=== PATIENT | female | born 1930 | race Caucasian/White ===

== ENCOUNTER 2016-06-01 11:31 | Day surgery (SDC) | payer MEDICARE, BC ==
[~2016-06-01] VITALS: Ht 157.5 cm; Wt 64.2 kg
[~2016-06-01 11:31] MED LIST: AMITIZA 8MCG8 MCG PO; CATAPRES0.2 MG PO; COUMADIN 1010 MG/TAB PO; COUMADIN 77.5 MG/TAB PO; DITROPAN 5MG TAB5 MG PO; LASIX 40MG TABL40 MG PO; MIRALAX PA17 GM/Dose PO; MURO 128 5% OPH15 ML OP; NORVASC 10MG10 MG PO; NORVASC 5MG5 MG/TAB PO; PRILOSEC 20MG20 MG PO; PRINIVIL40 MG PO; PROAIR HFA0.09 MG/AC IH; PROTONIX 40MG T40 MG PO; REQUIP 1MG T1 MG/TAB PO; RESTASIS 60VL OP; RT ADVAIR 228 DISKUS IH; RT ALBUTER2.5 MG/0.5 IH; RT SPIRIVA18 MCG IH; SINGULAIR 110 MG/TAB PO; ZESTRIL40 MG PO
[2016-06-01 12:15] VITALS: BP 181/69; PULSE 64; TEMP 98.1
[2016-06-01] MEDS ORDERED: ALBUTEROL0.83 MG/ML IH (12:18)
[2016-06-01] MEDS ORDERED: NORVASC 5MG5 MG/TAB PO (12:19)
[2016-06-01] MEDS ORDERED: AMITIZA 8MCG8 MCG PO (12:19)
[2016-06-01] MEDS ORDERED: CLARITIN 1010 MG/TAB PO (12:20)
[2016-06-01] MEDS ORDERED: ELIQUIS 2.5 PO (12:20)
[2016-06-01] MEDS ORDERED: VENTOLIN0.09 MG IH (12:21)
[2016-06-01] MEDS ORDERED: RT SPIRIVA18 MCG IH (12:21)
[2016-06-01] MEDS ORDERED: PROTONIX 40MG T40 MG PO (12:21)
[2016-06-01] MEDS ORDERED: REQUIP 1MG T1 MG/TAB PO (12:22)
[2016-06-01] MEDS ORDERED: LOPRESSOR 225 MG/TAB PO (12:22)
[2016-06-01] MEDS ORDERED: ZESTRIL40 MG PO (12:23)
[2016-06-01] MEDS ORDERED: SINGULAIR 110 MG/TAB PO (12:23)
[2016-06-01] MEDS ORDERED: MIRALAX PA17 GM/Dose PO (12:24)
[2016-06-01] MEDS ORDERED: DITROPAN 5MG TAB5 MG PO (12:24)
[2016-06-01] MEDS ORDERED: MURO-128 5% OP3.5 GM OP (12:25)
[2016-06-01] MEDS ORDERED: STOOL SOFTENER100 M2 PO (12:25)
[2016-06-01 12:51] VITALS: BP 165/78; PULSE 68; TEMP 97.5
[2016-06-01 13:05] VITALS: BP 169/67; PULSE 76
[2016-06-01 13:20] VITALS: BP 148/83; PULSE 76
== END 2016-06-01 13:45 | disposition home or self-care (01) ==
LOC: SDCO 11:31
DX: R05 Cough (principal); R06.00 Dyspnea, unspecified; R09.89 Other specified symptoms and signs involving the circulatory and respiratory systems; J44.9 Chronic obstructive pulmonary disease, unspecified; K21.9 Gastro-esophageal reflux disease without esophagitis; I10 Essential (primary) hypertension; Z79.899 Other long term (current) drug therapy; Z79.01 Long term (current) use of anticoagulants; G47.34 Idiopathic sleep related nonobstructive alveolar hypoventilation
CPT/HCPCS: J0456; J2704; J2920; J3010; J7050; J7120

== ENCOUNTER 2016-07-02 08:52 | Day surgery (SDC) | payer MEDICARE, BC ==
[~2016-07-02] VITALS: Ht 154.9 cm; Wt 67.9 kg
[~2016-07-02 08:52] MED LIST changes: +ALBUTEROL0.83 MG/ML IH; +CLARITIN 1010 MG/TAB PO; +ELIQUIS 2.5 PO; +LOPRESSOR 225 MG/TAB PO; +MURO-128 5% OP3.5 GM OP; +STOOL SOFTENER100 M2 PO; +VENTOLIN0.09 MG IH
[2016-07-02 09:33] VITALS: BP 162/74; PULSE 84; TEMP 97.8
[2016-07-02] MEDS ORDERED: RT SPIRIVA18 MCG IH (09:45)
[2016-07-02] MEDS ORDERED: DETROL1 MG PO (09:49)
[2016-07-02] MEDS ORDERED: MURO-128 5% OP3.5 GM OP (09:50)
[2016-07-02 10:49] VITALS: BP 133/69; PULSE 77; TEMP 98
[2016-07-02 11:05] VITALS: BP 148/79; PULSE 84
[2016-07-02 13:51] VITALS: BP 141/74; PULSE 77
== END 2016-07-02 11:30 | disposition home or self-care (01) ==
LOC: SDCO 08:52
DX: J44.0 Chronic obstructive pulmonary disease with (acute) lower respiratory infection (principal); J20.8 Acute bronchitis due to other specified organisms; R05 Cough; R06.02 Shortness of breath; K21.9 Gastro-esophageal reflux disease without esophagitis
CPT/HCPCS: J2704; J7120